=== PATIENT | female | born 1965 | race Caucasian/White ===

== ENCOUNTER 2018-10-27 09:21 | Outpatient (CLI) | payer OTHER | END 2018-10-27 09:30 | disposition home or self-care (01) | LOC: SONOGRAMA 09:21 | DX: E04.1 Nontoxic single thyroid nodule (principal) ==

== ENCOUNTER 2023-07-26 10:35 | Outpatient (CLI) | payer OTHER | END 2023-07-26 10:42 | disposition home or self-care (01) | LOC: SONOGRAMA 10:35 | PROVIDERS: ATTEND Pathology Anatomic Pathology & Clinical Pathology | DX: D34 Benign neoplasm of thyroid gland (principal); E06.5 Other chronic thyroiditis; E04.9 Nontoxic goiter, unspecified ==